=== PATIENT | female | born 1995 | race Caucasian/White ===

== ENCOUNTER 2021-03-17 16:59 | Emergency (ER) | payer OTHER ==
[2021-03-17] MEDS ORDERED: Acetaminophen 500 MG TAB ONE ×2 (19:26)
[2021-03-18 01:47] LABS: SARS-CoV-2 PCR by NAA DETECTED (NotDetected)
== END 2021-03-17 20:08 | disposition home or self-care (01) ==
LOC: ERS 16:59
DX: U07.1 COVID-19 (principal)
CPT/HCPCS: 99284; U0003; U0005